=== PATIENT | male | born 1995 | race Two or more races ===

== ENCOUNTER 2017-03-20 09:29 | Emergency (ER) | payer BC ==
[~2017-03-20] VITALS: Ht 182.9 cm; Wt 100.0 kg
[2017-03-20 09:38] VITALS: BP 171/83; PULSE 111; RESP 16; TEMP 100.8; O2SAT 97
[2017-03-20] MEDS ORDERED: ACETAMINOPHEN 325 MG TAB PO ONE (10:15)
[2017-03-20] MEDS ORDERED: ONDANSETRON ODT 4 MG TAB PO ONE (10:15)
--- NOTE | 2017-03-20 10:23 | PD ---
HPI Chief Complaint: Cold / Flu Symptoms Time Seen by Provider: 09:57 Travel History International Travel<30 days: No Contact w/Intl Traveler<30days: No Traveled to known affect area: No History of Present Illness HPI 21-year-old male with PMH of migraines presents to the ED for evaluation less than 24 hour history of headache, body aches, chills, sinus congestion, clear rhinorrhea, sore throat, nonproductive cough, nausea and nonbilious vomiting. He states his headache is in the posterior area of the head and is accompanied by photophobia. Headache rated 5/10, described as dull. Somewhat alleviated by Advil. He states this headache is very similar to his previous migraines. He has not measured a temperature at home. He denies sick contacts. He denies this years flu vaccine. He treated at home with Advil around 7 AM today. PFSH Past Medical History Migraines: Yes Past Surgical History Surgical History: No Previous Surgery Social History Alcohol Use: No Tobacco Use: No Substance Use: No Allergies-Medications (Allergen,Severity, Reaction): Coded Allergies: No Known Allergies (Unverified , 03/20/17) Reported Meds & Prescriptions Reported Meds & Active Scripts Active Zofran Odt (Ondansetron Odt) 4 Mg Tab 4 Mg SL Q8HR PRN Tamiflu (Oseltamivir Phosphate) 75 Mg Cap 75 Mg PO BID 5 Days Review of Systems Except as stated in HPI: all other systems reviewed are Neg Physical Exam Narrative GENERAL: Well-nourished, well-developed ill-appearing male in no acute distress SKIN: Warm and dry. HEAD: Normocephalic. Atraumatic. EYES: No scleral icterus. No injection or drainage. PERRLA. EOMI. ENT: [place] tympanic membranes bilaterally. Nasal mucosa is moist. Oropharynx with mild posterior erythema. No edema or exudate. Tonsils 1+ bilaterally. Uvula midline. Airway patent. NECK: Supple, trachea midline. No JVD or lymphadenopathy. CARDIOVASCULAR: Regular rate and rhythm without murmurs, gallops, or rubs. RESPIRATORY: Breath sounds clear and equal bilaterally. No accessory muscle use. GASTROINTESTINAL: Abdomen soft, non-tender, nondistended. + Bowel sounds MUSCULOSKELETAL: No cyanosis, or edema. BACK: Nontender without obvious deformity. No CVA tenderness. Data Data Last Documented VS Vital Signs Date Time Temp Pulse Resp B/P (MAP) Pulse Ox O2 Delivery O2 Flow Rate FiO2 03/20/17 11:04 100.9 114 20 143/79 (100) 96 Room Air Orders Orders Group A Rapid Strep Screen (03/20/17 09:37) Influenzae A/B Antigen (03/20/17 09:37) Ondansetron Odt (Zofran Odt) (03/20/17 10:15) Acetaminophen (Tylenol) (03/20/17 10:15) Strep Culture (Group A) (03/20/17 10:02) ^ Insert Iv (03/20/17 10:55) Sodium Chlor 0.9% 1000 Ml Inj (Ns 1000 M (03/20/17 11:00) Ed Discharge Order (03/20/17 11:49) MDM Medical Decision Making Medical Screen Exam Complete: Yes Emergency Medical Condition: Yes Differential Diagnosis Influenza versus pharyngitis versus strep pharyngitis versus other Narrative Course 21-year-old male with PMH of migraines presents to the ED for evaluation less than 24 hour history of headache, body aches, chills, sinus congestion, clear rhinorrhea, sore throat, nonproductive cough, nausea and nonbilious vomiting. He states his headache is in the posterior area of the head and is accompanied by photophobia, very similar to his previous migraines. Temp 100.8. Heart rate 111 on presentation. Physical exam reveals an ill-appearing male in no acute distress. He has some mild posterior oropharyngeal erythema in the tonsils are 1+ bilaterally but the exam is otherwise unremarkable. Patient was administered ODT Zofran and 650 Tylenol. He was allowed to orally rehydrate. Flu swab positive for influenza A. On recheck he is tolerating fluids, reports improvement of his headache, temp and heart rate continue to be elevated. He' ll be admitted to the medical pods, IV inserted, fluid bolus administered. Vitals improved on recheck. Patient's prescribed Tamiflu and a few doses of Zofran. He is provided detailed instructions on symptomatic care, reveals to return to the ED. The patient and his mother indicated understanding of instructions and are agreeable to the care plan. The patient is stable and discharged home. Diagnosis Primary Impression: Influenza Referrals: Primary Care Physician Patient Instructions: General Instructions, Influenza (ED) Additional Instructions: Rest, hydrate. Push fluids such as sports drinks, Pedialyte, popsicles, clear broth. Take Tamiflu as prescribed. Continue with symptomatic treatment with OTC medications. Alternating Motrin and Tylenol every 4-6 hours as needed for continued fever, headaches and body aches. Increase handwashing frequently to avoid the spread of the virus to other family members and the community. Disinfect commonly touched surfaces such as light switches, microwaves, remote controls. Replace toothbrush at the end of this illness. Follow-up with the primary care provider this week. Return to the ED for any urgent or emergent medical condition. Med/Other Pt SpecificInfo: Prescription(s) given Scripts Ondansetron Odt (Zofran Odt) 4 Mg Tab 4 MG SL Q8HR Y for Nausea/Vomiting, #6 TAB 0 Refills Prov: Reema Abreu MD 03/20/17 Oseltamivir (Tamiflu) 75 Mg Cap 75 MG PO BID for Mgmt Viral Infection for 5 Days, #10 CAP 0 Refills Prov: Reema Abreu MD 03/20/17 Disposition: 01 DISCHARGE HOME Condition: Stable Darlin Rosales Mar 20, 2017 10:23
[2017-03-20] MEDS ORDERED: ZOFR4TAB3 SL (10:25)
[2017-03-20] MEDS ORDERED: OSEL75 PO (10:25)
[2017-03-20] MEDS ORDERED: SODIUM CHLOR 0.9% 1000 ML INJ 1,000 ML IV ONE (11:00)
[2017-03-20 11:04] VITALS: BP 143/79; PULSE 114; RESP 20; TEMP 100.9; O2SAT 96
[2017-03-20 11:51] VITALS: PULSE 95; RESP 18; TEMP 99.1; O2SAT 100
== END 2017-03-20 11:52 | disposition home or self-care (01) ==
LOC: NEPK 09:29 → NEPD 11:52
DX: J11.1 Influenza due to unidentified influenza virus with other respiratory manifestations (principal)
CPT/HCPCS: 87081; 87804; 87880; 99284; J7030

== ENCOUNTER 2017-08-14 20:16 | Emergency (ER) | payer BC ==
[~2017-08-14 20:16] MED LIST: OSEL75 PO; ZOFR4TAB3 SL
[2017-08-14 21:02] VITALS: BP 139/72; PULSE 94; RESP 17; TEMP 98.9; O2SAT 99
--- NOTE | 2017-08-14 21:45 | RADRPT ---
EXAM DATE: 08/14/2017 9:39 PM EDT AGE/SEX: 22 years / Male INDICATIONS: Patellar dislocation. CLINICAL DATA: This is the patient's initial encounter. Patient reports that signs and symptoms have been present for 1 day and indicates a pain score of 10/10. MEDICAL/SURGICAL HISTORY: None. None. COMPARISON: No prior [facility] exams available for comparison. FINDINGS: There is a moderate knee joint effusion. There is a 3 cm ossific density seen at the lateral aspect o f the knee posteriorly which appears at least partially well corticated, and likely nonacute. No obvi ous patellar fracture is seen. CONCLUSION: Moderate knee joint effusion. No obvious acute fracture. Electronically signed by: Ananda Cook MD 08/14/2017 9:44 PM EDT
[2017-08-14] MEDS ORDERED: IBUPROFEN 600 MG TAB PO ONE (22:30)
[2017-08-14] MEDS ORDERED: IBUP-232 PO (22:32)
--- NOTE | 2017-08-14 22:32 | PD ---
HPI Chief Complaint: Injury Time Seen by Provider: 22:30 Travel History International Travel<30 days: No Contact w/Intl Traveler<30days: No Traveled to known affect area: No History of Present Illness HPI Patient 22-year-old male with a history of patellar dislocation by his description presents the emergency department for evaluation of right knee pain and swelling. Patient states he was walking around when he felt like his knee had dislocated again. Sometime after that he has had progressive swelling of his right knee and some pain particularly when trying to bend his knee. He has been able to ambulate albeit very gingerly. Denies any blunt trauma denies any falling denies any head neck back pain. He states his pain is moderate, right knee, started today, context as above per [facility] Past Medical History Migraines: Yes Social History Alcohol Use: No Tobacco Use: No Substance Use: No Allergies-Medications (Allergen,Severity, Reaction): Coded Allergies: No Known Allergies (Unverified , 08/14/17) Reported Meds & Prescriptions Reported Meds & Active Scripts Active Ibuprofen 600 Mg Tab 600 Mg PO Q6H PRN Zofran Odt (Ondansetron Odt) 4 Mg Tab 4 Mg SL Q8HR PRN Tamiflu (Oseltamivir Phosphate) 75 Mg Cap 75 Mg PO BID 5 Days Review of Systems Except as stated in HPI: all other systems reviewed are Neg Physical Exam Narrative GENERAL: Well-nourished, well-developed patient. SKIN: Focused skin assessment warm/dry. HEAD: Normocephalic. EYES: No scleral icterus. No injection or drainage. NECK: Supple, trachea midline. No JVD or lymphadenopathy. CARDIOVASCULAR: Regular rate and rhythm without murmurs, gallops, or rubs. RESPIRATORY: Breath sounds equal bilaterally. No accessory muscle use. GASTROINTESTINAL: Abdomen soft, non-tender, nondistended. MUSCULOSKELETAL: No cyanosis, or edema. There is a moderate joint effusion about the right knee, there is some tenderness on flexion extension but there is no joint laxity. Joint is not warm, there is no gross deformity. There is no tenderness over the patella and proximal fibula distal femur or proximal tibia. Pulses motor and sensory intact distally in all 4 extremities, compartments are soft. No tenderness at the hips or ankles. BACK: Nontender without obvious deformity. No CVA tenderness. Data Data Last Documented VS Vital Signs Date Time Temp Pulse Resp B/P (MAP) Pulse Ox O2 Delivery O2 Flow Rate FiO2 08/14/17 21:02 98.9 94 17 139/72 (94) 99 Orders Orders Knee, Complete (4vws) (08/14/17 21:04) ^ Knee Immobilizer (08/14/17 22:30) Crutches (08/14/17 ) Ibuprofen (Motrin) (08/14/17 22:30) Ed Discharge Order (08/14/17 22:30) MDM Medical Decision Making Medical Screen Exam Complete: Yes Emergency Medical Condition: Yes Differential Diagnosis Knee effusion, tendon injury, fracture highly unlikely and is excluded by Bland knee rules, compartment syndrome is excluded clinically, patella dislocation peer Narrative Course Patient room to the emergency department, by his description it seems as though he has dislocated his patella again and it spontaneously has relocated. His knee is anatomical at this time. Imaging was obtained as part of triage protocol and shows the following results: Last 24 hours Impressions Knee X-Ray 08/14/17 2104 Signed Impressions: CONCLUSION: Moderate knee joint effusion. No obvious acute fracture. Given the knee effusion the patient will be placed in knee immobilizer instruction for rest ice compression elevation follow-up with an orthopedic surgeon. He is stable for discharge. Diagnosis Primary Impression: Patellar dislocation Additional Impression: Knee effusion, right Referrals: Luis Daniel Peter MD Patient Instructions: General Instructions, RICE Therapy (ED) Med/Other Pt SpecificInfo: Prescription(s) given Scripts Ibuprofen (Ibuprofen) 600 Mg Tab 600 MG PO Q6H Y for PAIN, #20 TAB 0 Refills Prov: Shravan Rojas MD 08/14/17 Disposition: 01 DISCHARGE HOME Condition: Stable Shravan Rojas MD Aug 14, 2017 22:32
== END 2017-08-14 22:53 | disposition home or self-care (01) ==
LOC: NEPK 20:16
DX: S83.004A Unspecified dislocation of right patella, initial encounter (principal); X58.XXXA Exposure to other specified factors, initial encounter; M25.461 Effusion, right knee
CPT/HCPCS: 73564; 99283; E0113